=== PATIENT | male | born 1985 | race Caucasian/White ===

== ENCOUNTER 2016-09-05 20:01 | Emergency (ER) | payer MEDICAID ==
[~2016-09-05] VITALS: Ht 180.3 cm; Wt 74.8 kg
--- NOTE | 2016-09-05 20:39 | NUR ---
Dr. Lee at bedside for eval.
[2016-09-05] MEDS ORDERED: ASPIRIN 81 MG TAB.CHEW PO ONE (20:45)
[2016-09-05] MEDS ORDERED: LORAZEPAM 2 MG/1 ML VIAL IV ONE (20:45)
[2016-09-05] MEDS ORDERED: ACETAMINOPHEN ES 500 MG TABLET PO ONE (20:45)
[2016-09-05] MEDS ORDERED: IV NORMAL SALINE 1000 ML BAG IV ONE (20:45)
[2016-09-05 21:04] LABS: BASOPHILS # (AUTO) 0.1 K/uL (0.0-8.0); BASOPHILS % (AUTO) 0.6 % (0.0-2.0); EOSINOPHILS # (AUTO) 0.1 K/uL (0.0-0.7); EOSINOPHILS % (AUTO) 0.5 % (0.0-7.0); HEMATOCRIT 45.3 % (40-50); HEMOGLOBIN 15.6 G/DL (14.0-18.0); LYMPHOCYTES # (AUTO) 2.1 K/UL (0.8-4.8); LYMPHOCYTES % (AUTO) 13.3 % (20.5-51.5); MEAN CORPUSCULAR HEMOGLOBIN 31.8 UUG (27.0-31.0); MEAN CORPUSCULAR HGB CONC 34 g/dL (32.0-37.0); MEAN CORPUSCULAR VOLUME 92.7 FL (82.0-92.0); MONOCYTES # (AUTO) 1.7 K/UL (0.1-1.30); MONOCYTES % (AUTO) 10.6 % (0.0-11.0); NEUTROPHILS # (AUTO) 12.1 K/UL (1.8-8.9); PLATELET COUNT (AUTO) 303 K/UL (150-450); RED BLOOD CELL COUNT(AUTO) 4.89 MIL/UL (4.7-6.1); WHITE BLOOD COUNT (AUTO) 16.1 K/UL (4.0-11.2)
[2016-09-05 21:11] LABS: CREATININE 0.8 mg/dL (0.6-1.3)
[2016-09-05] MEDS ORDERED: ACETAMINOPHEN ES 500 MG TABLET ONE (21:15)
[2016-09-05] MEDS ORDERED: LORAZEPAM 2 MG/1 ML VIAL ONE (21:15)
[2016-09-05] MEDS ORDERED: ASPIRIN 81 MG TAB.CHEW ONE (21:15)
[2016-09-05 21:19] LABS: BAND % (MANUAL) 9 % (0-10); LYMPHOCYTES % (MANUAL) 11 % (20-40); MONOCYTES % (MANUAL) 9 % (2-10); NEUTROPHILS % (MANUAL) 71 % (42-75)
[2016-09-05 21:23] LABS: BILIRUBIN,DIRECT 0.2 mg/dL (0.0-0.2); BILIRUBIN,TOTAL 0.8 mg/dL (0.2-1.0); TOTAL PROTEIN, SERUM 8.3 g/dL (6.4-8.2)
[2016-09-05 22:35] LABS: *AMPHETAMINE, URINE NEGATIVE (NEGATIVE); *BARBITURATE, URINE NEGATIVE (NEGATIVE); *CANNABINOID, URINE NEGATIVE (NEGATIVE); *COCCAINE, URINE NEGATIVE (NEGATIVE); *OPIATE, URINE NEGATIVE (NEGATIVE); *PHENCYCLIDINE SCREEN,URINE NEGATIVE (NEGATIVE)
--- NOTE | 2016-09-06 00:18 | NUR ---
Patient discharged to home in stable conditon. Written and verbal after care instructions given. Patient verbalizes understanding of instructions.
[2016-09-06 00:19] VITALS: BP 124/78
== END 2016-09-06 00:20 | disposition home or self-care (01) ==
LOC: ER 20:12
DX: R07.89 Other chest pain (principal); F41.9 Anxiety disorder, unspecified; R00.0 Tachycardia, unspecified; F14.10 Cocaine abuse, uncomplicated; J02.9 Acute pharyngitis, unspecified; F10.20 Alcohol dependence, uncomplicated; Z88.0 Allergy status to penicillin
CPT/HCPCS: 36415; 71010; 80048; 80076; 80307; 83880; 84484 ×2; 85025; 85379; 93005; 96361; 96374; 99285; A4663; J2060; J7030; 70030-TC

== ENCOUNTER 2016-12-02 22:48 | Emergency (ER) | payer MEDICAID ==
[~2016-12-02] VITALS: Ht 180.3 cm; Wt 72.6 kg
--- NOTE | 2016-12-02 23:22 | NUR ---
Dr. Flanagan at bedside for MSE
--- NOTE | 2016-12-02 23:38 | NUR ---
PATIENT REFUSED TO HAVE XANAX AT THIS TIME. STATING "I FEEL OK RIGHT NOW."
[2016-12-02 23:43] VITALS: BP 148/95
--- NOTE | 2016-12-02 23:43 | NUR ---
Patient discharged to home in stable conditon. Written and verbal after care instructions given. Patient verbalizes understanding of instructions.PATIENT STATES WOULD RATHER FILL RX FOR XANAX THEN RECIEVED AT ER
== END 2016-12-02 23:44 | disposition home or self-care (01) ==
LOC: ER 22:52
DX: S05.01XA Injury of conjunctiva and corneal abrasion without foreign body, right eye, initial encounter (principal); Z88.0 Allergy status to penicillin; X58.XXXA Exposure to other specified factors, initial encounter; Y93.89 Activity, other specified; Y92.9 Unspecified place or not applicable; Y99.9 Unspecified external cause status
CPT/HCPCS: A4663

== ENCOUNTER 2016-12-11 19:31 | Emergency (ER) | payer MEDICAID ==
[~2016-12-11] VITALS: Ht 180.3 cm; Wt 68.0 kg
[2016-12-11] MEDS ORDERED: ALPRAZOLAM 0.25 MG TABLET PO ONE (20:00)
--- NOTE | 2016-12-11 20:02 | NUR ---
Patient discharged to home in stable conditon. Written and verbal after care instructions given. Patient verbalizes understanding of instructions.
[2016-12-11] MEDS ORDERED: ALPRAZOLAM 0.5 MG TABLET ONE (20:14)
== END 2016-12-11 20:03 | disposition home or self-care (01) ==
LOC: ER 19:32
DX: F41.9 Anxiety disorder, unspecified (principal); Z88.0 Allergy status to penicillin
CPT/HCPCS: A4663

== ENCOUNTER 2016-12-25 20:45 | Emergency (ER) | payer MEDICAID ==
[~2016-12-25] VITALS: Ht 180.3 cm; Wt 68.0 kg
[2016-12-25] MEDS ORDERED: ALPRAZOLAM 0.25 MG TABLET PO ONE (22:50)
--- NOTE | 2016-12-25 22:56 | NUR ---
Patient discharged to home in stable conditon. Written and verbal after care instructions given. Patient verbalizes understanding of instructions.
[2016-12-25] MEDS ORDERED: ALPRAZOLAM 0.25 MG TABLET ONE (23:10)
== END 2016-12-25 22:59 | disposition home or self-care (01) ==
LOC: ER 20:46
DX: F41.9 Anxiety disorder, unspecified (principal); G47.00 Insomnia, unspecified; Z88.0 Allergy status to penicillin
CPT/HCPCS: 93005; A4663

== ENCOUNTER 2017-01-13 21:26 | Emergency (ER) | payer MEDICAID ==
[~2017-01-13] VITALS: Ht 180.3 cm; Wt 68.0 kg
[2017-01-13 22:10] LABS: *BILIRUBIN,URIN NEGATIVE (NEGATIVE); *BLOOD, URINE Trace-lysed (NEGATIVE); *CLARITY,URINE CLEAR (CLEAR); *COLOR,URINE YELLOW (YELLOW); *KETONES,URINE NEGATIVE (NEGATIVE); *PROTEIN,URINE NEGATIVE (NEGATIVE); *UROBILINOGEN,URINE 0.2 E.U./dl (NORMAL); LEUKOCYTE ESTERASE ,URINE NEGATIVE (NEGATIVE); NITRITE, URINE NEGATIVE (NEGATIVE); UGLUCOSE NEGATIVE (NEGATIVE)
[2017-01-13 22:29] LABS: BACTERIA,URINE NONE SEEN /HPF (NONE SEEN); RBC,URINE 0-3 /HPF (0-3); SQUAMOUS EPITHELIAL CELL,UR FEW /HPF (NONE SEEN); WBC,URINE NONE SEEN /HPF (0-3)
--- NOTE | 2017-01-13 22:44 | NUR ---
Patient discharged to home in stable conditon. Written and verbal after care instructions given. Patient verbalizes understanding of instructions.
== END 2017-01-13 22:45 | disposition home or self-care (01) ==
LOC: ER 21:30
DX: F41.9 Anxiety disorder, unspecified (principal); Z88.0 Allergy status to penicillin
CPT/HCPCS: 81001; 99284; A4663

== ENCOUNTER 2017-01-31 04:10 | Emergency (ER) | payer MEDICAID ==
[~2017-01-31] VITALS: Ht 180.3 cm; Wt 66.7 kg
[2017-01-31 05:32] LABS: BASOPHILS # (AUTO) 0.1 K/uL (0.0-8.0); BASOPHILS % (AUTO) 0.9 % (0.0-2.0); EOSINOPHILS # (AUTO) 0.2 K/uL (0.0-0.7); EOSINOPHILS % (AUTO) 2.2 % (0.0-7.0); HEMATOCRIT 46.9 % (40-50); HEMOGLOBIN 16.3 G/DL (14.0-18.0); LYMPHOCYTES # (AUTO) 3.2 K/UL (0.8-4.8); MEAN CORPUSCULAR HEMOGLOBIN 31.8 UUG (27.0-31.0); MEAN CORPUSCULAR HGB CONC 35 g/dL (32.0-37.0); MEAN CORPUSCULAR VOLUME 91.4 FL (82.0-92.0); MONOCYTES % (AUTO) 9.8 % (0.0-11.0); NEUTROPHILS # (AUTO) 5.6 K/UL (1.8-8.9); NEUTROPHILS % (AUTO) 55.1 % (38.5-71.5); PLATELET COUNT (AUTO) 306 K/UL (150-450); RED BLOOD CELL COUNT(AUTO) 5.13 MIL/UL (4.7-6.1); WHITE BLOOD COUNT (AUTO) 10.1 K/UL (4.0-11.2)
[2017-01-31 06:07] LABS: THYROID STIMULATING HORMONE 1.529 mIU/mL (0.358-3.740)
[2017-01-31 06:12] LABS: BILIRUBIN,DIRECT 0.1 mg/dL (0.0-0.2); BILIRUBIN,TOTAL 0.6 mg/dL (0.2-1.0); CREATININE 0.8 mg/dL (0.6-1.3); POTASSIUM 3.9 mmol/L (3.5-5.1); TOTAL PROTEIN, SERUM 7.6 g/dL (6.4-8.2)
--- NOTE | 2017-01-31 06:20 | NUR ---
Patient discharged to home in stable conditon. Written and verbal after care instructions given. Patient verbalizes understanding of instructions.
== END 2017-01-31 06:21 | disposition home or self-care (01) ==
LOC: ER 04:13
DX: F41.1 Generalized anxiety disorder (principal); G47.00 Insomnia, unspecified; Z88.0 Allergy status to penicillin
CPT/HCPCS: 36415; 70030-TC; 83690; 84443; 84479; 85025; 85651; 85730; 93005; A4663

== ENCOUNTER 2017-02-19 18:52 | Emergency (ER) | payer MEDICAID ==
[~2017-02-19] VITALS: Ht 180.3 cm; Wt 70.3 kg
--- NOTE | 2017-02-19 20:22 | NUR ---
Patient discharged to home in stable conditon. Written and verbal after care instructions given. Patient verbalizes understanding of instructions.
== END 2017-02-19 20:23 | disposition home or self-care (01) ==
LOC: ER 18:53
DX: S61.011A Laceration without foreign body of right thumb without damage to nail, initial encounter (principal); Z88.0 Allergy status to penicillin; X58.XXXA Exposure to other specified factors, initial encounter; Y93.89 Activity, other specified; Y92.89 Other specified places as the place of occurrence of the external cause; Y99.8 Other external cause status
CPT/HCPCS: A4663

== ENCOUNTER 2017-03-28 23:09 | Emergency (ER) | payer MEDICAID ==
[~2017-03-28] VITALS: Ht 180.3 cm; Wt 72.6 kg
--- NOTE | 2017-03-29 00:45 | NUR ---
Pt c/o SOB, CP and congestion x 3 weeks, w/cough, SANTIAGO and sore throat. Pt denies dizziness, n/v, no other complaints, no distress noted.
--- NOTE | 2017-03-29 01:40 | NUR ---
Gave pt RX and d/c instructions, verbalized understanding.
== END 2017-03-29 01:45 | disposition home or self-care (01) ==
LOC: ER 23:12
DX: J20.8 Acute bronchitis due to other specified organisms (principal); B96.89 Other specified bacterial agents as the cause of diseases classified elsewhere; Z88.0 Allergy status to penicillin; F17.200 Nicotine dependence, unspecified, uncomplicated
CPT/HCPCS: 93005; 99283; A4663

== ENCOUNTER 2017-06-16 22:39 | Emergency (ER) | payer MEDICAID ==
[~2017-06-16] VITALS: Ht 180.3 cm; Wt 73.5 kg
[2017-06-16] MEDS ORDERED: LORAZEPAM 0.5 MG TABLET PO ONE (23:30)
[2017-06-16] MEDS ORDERED: LORAZEPAM 1 MG TABLET ONE (23:36)
--- NOTE | 2017-06-16 23:40 | NUR ---
Patient discharged to home in stable conditon. Written and verbal after care instructions given. Patient verbalizes understanding of instructions. Patient able to ambulate unassisted with steady gait. Patient left with all personal belongings.
[2017-06-16 23:43] VITALS: BP 147/82
== END 2017-06-16 23:40 | disposition home or self-care (01) ==
LOC: ER 22:40
DX: F41.9 Anxiety disorder, unspecified (principal); F17.210 Nicotine dependence, cigarettes, uncomplicated; F32.9 Major depressive disorder, single episode, unspecified; F11.10 Opioid abuse, uncomplicated; Z88.0 Allergy status to penicillin
CPT/HCPCS: A4663

== ENCOUNTER 2017-06-28 19:11 | Emergency (ER) | payer MEDICAID ==
[~2017-06-28] VITALS: Ht 180.3 cm; Wt 74.8 kg
[2017-06-28] MEDS ORDERED: LORAZEPAM 1 MG TABLET (19:39)
[2017-06-28] MEDS ORDERED: SERTRALINE HCL 100 MG TABLET (19:39)
[2017-06-28] MEDS ORDERED: ONDANSETRON IV *ER 4 MG/2 ML VIAL IV ONE (20:27)
[2017-06-28] MEDS ORDERED: IV NS 1000 ML 1,000 ML IV ONE (20:30)
[2017-06-28] MEDS ORDERED: HYDROCODONE/APAP 5-325MG TABLET PO ONE (20:30)
--- NOTE | 2017-06-28 20:30 | NUR ---
PATIENT SEEN AAOX4,MAEX4,NO SOB ON ROOM AIR . VERBALIZED GENERALIZED BODY PAIN 5 TO 5 OVER 10 . TOUCHING HIS FOREHEAD AND NECK PAIN. NO SKINBREAKDOWN NOTED . STARTED NO 20 H/L TO LEFT FOREARM .LABS CAME AND DID BLOOD DRAWS .
[2017-06-28] MEDS ORDERED: HYDROCODONE/APAP 5-325MG TABLET ONE (20:38)
[2017-06-28] MEDS ORDERED: ONDANSETRON 4 MG/2 ML VIAL ONE (20:38)
[2017-06-28 20:46] LABS: BASOPHILS # (AUTO) 0.1 K/uL (0.0-8.0); BASOPHILS % (AUTO) 0.9 % (0.0-2.0); EOSINOPHILS # (AUTO) 0.2 K/uL (0.0-0.7); EOSINOPHILS % (AUTO) 1.8 % (0.0-7.0); HEMATOCRIT 46.8 % (36.7-47.1); HEMOGLOBIN 15.9 g/dL (12.5-16.3); LYMPHOCYTES # (AUTO) 2.9 K/uL (20.0-40.0); LYMPHOCYTES % (AUTO) 30.1 % (20.5-51.5); MEAN CORPUSCULAR HEMOGLOBIN 31.4 uug (23.8-33.4); MEAN CORPUSCULAR HGB CONC 34 g/dL (32.5-36.3); MONOCYTES # (AUTO) 0.9 K/uL (2.0-10.0); MONOCYTES % (AUTO) 9.6 % (0.0-11.0); NEUTROPHILS # (AUTO) 5.6 K/uL (1.8-8.9); NEUTROPHILS % (AUTO) 57.6 % (38.5-71.5); PLATELET COUNT (AUTO) 323 K/uL (152-348); RED BLOOD CELL COUNT(AUTO) 5.08 MIL/uL (4.06-5.63); WHITE BLOOD COUNT (AUTO) 9.7 K/uL (3.6-10.2)
[2017-06-28 20:53] LABS: CREATININE 1.2 mg/dL (0.6-1.3); POTASSIUM 4.5 mmol/L (3.5-5.1)
[2017-06-28 21:00] LABS: BILIRUBIN,TOTAL 0.5 mg/dL (0.2-1.0); TOTAL PROTEIN, SERUM 7.9 g/dL (6.4-8.2)
--- NOTE | 2017-06-28 21:01 | NUR ---
WENT FOR CT VIA W/C .
[2017-06-28] MEDS ORDERED: KETOROLAC TROMETHAMINE 30 MG INJ IVP ONE (22:16)
[2017-06-28] MEDS ORDERED: KETOROLAC TROMETHAMINE 30 MG INJ ONE (22:32)
--- NOTE | 2017-06-28 22:48 | NUR ---
d/c instruction given and patient verbalized understanding .deneis pain at this time .no sob .ambulatory steady of gait .
[2017-06-28 23:04] VITALS: BP 115/86
== END 2017-06-28 23:04 | disposition home or self-care (01) ==
LOC: ER 19:13
DX: S39.012A Strain of muscle, fascia and tendon of lower back, initial encounter (principal); S09.90XA Unspecified injury of head, initial encounter; F17.210 Nicotine dependence, cigarettes, uncomplicated; F12.10 Cannabis abuse, uncomplicated; Z88.0 Allergy status to penicillin; Z79.899 Other long term (current) drug therapy; V43.52XA Car driver injured in collision with other type car in traffic accident, initial encounter; Y93.89 Activity, other specified; Y92.410 Unspecified street and highway as the place of occurrence of the external cause; Y99.8 Other external cause status
CPT/HCPCS: 36415; 70030-TC; 70450; 71045; 72100; 85025; A4663; J1885; J2405; J7030

== ENCOUNTER 2017-08-29 16:00 | Emergency (ER) | payer MEDICAID ==
[~2017-08-29] VITALS: Ht 180.3 cm; Wt 74.8 kg
[~2017-08-29 16:00] MED LIST: LORAZEPAM 1 MG TABLET; SERTRALINE HCL 100 MG TABLET
--- NOTE | 2017-08-29 16:27 | NUR ---
MSE COMPKLETED, PT D/C'D HOME, ACI/RX X1 GIVEN. PT AMBULATED W/O DIFF/TOOK ALL BELONGINGS.
[2017-08-29 16:29] VITALS: BP 155/88
== END 2017-08-29 16:29 | disposition home or self-care (01) ==
LOC: ER 16:01
DX: F41.9 Anxiety disorder, unspecified (principal); F11.10 Opioid abuse, uncomplicated; F17.200 Nicotine dependence, unspecified, uncomplicated; Z79.899 Other long term (current) drug therapy; Z88.0 Allergy status to penicillin
CPT/HCPCS: 99284; A4663

== ENCOUNTER 2017-11-18 04:29 | Emergency (ER) | payer MEDICAID ==
[~2017-11-18] VITALS: Ht 180.3 cm; Wt 74.8 kg
--- NOTE | 2017-11-18 04:30 | NUR ---
Came in to ER c/o chest pain and anxiety. To room 1A. Attached to bedside monitor. Seen and evaluated by Dr. Herman.
--- NOTE | 2017-11-18 04:50 | NUR ---
Ativan 1mg administered as ordered. Seen by Dr. Herman
[2017-11-18] MEDS ORDERED: LORAZEPAM 0.5 MG TABLET PO ONE (05:00)
[2017-11-18] MEDS ORDERED: LORAZEPAM 1 MG TABLET ONE (05:02)
--- NOTE | 2017-11-18 05:16 | NUR ---
Patient discharged to home in stable conditon. Written and verbal after care instructions given. Patient verbalizes understanding of instructions. Prescription provided.
[2017-11-18 05:19] VITALS: BP 141/91
== END 2017-11-18 05:18 | disposition home or self-care (01) ==
LOC: ER 04:32
DX: R07.9 Chest pain, unspecified (principal); R06.00 Dyspnea, unspecified; F41.9 Anxiety disorder, unspecified; F17.200 Nicotine dependence, unspecified, uncomplicated; F14.10 Cocaine abuse, uncomplicated; Z88.0 Allergy status to penicillin
CPT/HCPCS: 71045; 93005; A4663

== ENCOUNTER 2017-12-20 13:51 | Emergency (ER) | payer MEDICAID ==
[~2017-12-20] VITALS: Ht 180.3 cm; Wt 74.8 kg
[2017-12-20] MEDS ORDERED: LORAZEPAM 1 MG TABLET ONE (14:06)
--- NOTE | 2017-12-20 14:09 | NUR ---
Patient discharged to home in stable conditon. Written and verbal after care instructions given. Patient verbalizes understanding of instructions.pt not driving
[2017-12-20] MEDS ORDERED: LORAZEPAM 0.5 MG TABLET PO ONE (14:15)
== END 2017-12-20 14:11 | disposition home or self-care (01) ==
LOC: ER 13:52
DX: F41.9 Anxiety disorder, unspecified (principal); F14.10 Cocaine abuse, uncomplicated; F17.200 Nicotine dependence, unspecified, uncomplicated; Z88.0 Allergy status to penicillin
CPT/HCPCS: A4663

== ENCOUNTER 2018-02-09 15:48 | Emergency (ER) | payer MEDICAID ==
[~2018-02-09] VITALS: Ht 180.3 cm; Wt 77.1 kg
[2018-02-09] MEDS ORDERED: LORAZEPAM 0.5 MG TABLET PO ONE (16:45)
[2018-02-09] MEDS ORDERED: LORAZEPAM 1 MG TABLET ONE (16:49)
--- NOTE | 2018-02-09 16:51 | NUR ---
Patient discharged to home in stable conditon. Written and verbal after care instructions given. Patient verbalizes understanding of instructions.
== END 2018-02-09 16:52 | disposition home or self-care (01) ==
LOC: ER 15:50
DX: F41.9 Anxiety disorder, unspecified (principal); Z76.0 Encounter for issue of repeat prescription; F17.200 Nicotine dependence, unspecified, uncomplicated; F14.10 Cocaine abuse, uncomplicated; Z88.0 Allergy status to penicillin; Z79.899 Other long term (current) drug therapy
CPT/HCPCS: A4663

== ENCOUNTER 2018-04-10 00:49 | Emergency (ER) | payer MEDICAID ==
[~2018-04-10] VITALS: Ht 180.3 cm; Wt 75.7 kg
--- NOTE | 2018-04-10 01:16 | NUR ---
ARMANDO SANDS at bedside for patient pear picker. Addendum: 04/10/18 at 0117 by FRANCIS ARMANDO SANDS at bedside for patient evaluation.
[2018-04-10 01:58] LABS: BASOPHILS # (AUTO) 0.1 K/uL (0.0-8.0); BASOPHILS % (AUTO) 1.1 % (0.0-2.0); EOSINOPHILS # (AUTO) 0.2 K/uL (0.0-0.7); EOSINOPHILS % (AUTO) 1.8 % (0.0-7.0); HEMOGLOBIN 15.1 g/dL (12.5-16.3); LYMPHOCYTES # (AUTO) 3.7 K/uL (20.0-40.0); LYMPHOCYTES % (AUTO) 32.8 % (20.5-51.5); MEAN CORPUSCULAR HEMOGLOBIN 31.1 uug (23.8-33.4); MEAN CORPUSCULAR HGB CONC 34 g/dL (32.5-36.3); MEAN CORPUSCULAR VOLUME 90.5 fL (73.0-96.2); MONOCYTES # (AUTO) 1.1 K/uL (2.0-10.0); MONOCYTES % (AUTO) 9.6 % (0.0-11.0); NEUTROPHILS # (AUTO) 6.2 K/uL (1.8-8.9); NEUTROPHILS % (AUTO) 54.7 % (38.5-71.5); PLATELET COUNT (AUTO) 261 K/uL (152-348); RED BLOOD CELL COUNT(AUTO) 4.86 MIL/uL (4.06-5.63); WHITE BLOOD COUNT (AUTO) 11.4 K/uL (3.6-10.2)
[2018-04-10 02:09] LABS: CREATININE 0.9 mg/dL (0.6-1.3); POTASSIUM 3.9 mmol/L (3.5-5.1)
[2018-04-10 02:15] LABS: BILIRUBIN,DIRECT 0.1 mg/dL (0.0-0.2); BILIRUBIN,TOTAL 0.4 mg/dL (0.2-1.0); TOTAL PROTEIN, SERUM 7.5 g/dL (6.4-8.2)
--- NOTE | 2018-04-10 02:35 | NUR ---
Patient discharged to home in stable conditon. Written and verbal after care instructions given. Patient verbalizes understanding of instructions. Ambulated from ER with stable gait. All belongings with patient. VSS
[2018-04-10 02:36] VITALS: BP 131/80
== END 2018-04-10 02:36 | disposition other institution (70) ==
LOC: ER 00:52
DX: F41.9 Anxiety disorder, unspecified (principal); F17.200 Nicotine dependence, unspecified, uncomplicated; F14.10 Cocaine abuse, uncomplicated; F32.9 Major depressive disorder, single episode, unspecified; Z79.899 Other long term (current) drug therapy; Z88.0 Allergy status to penicillin
CPT/HCPCS: 36415; 70030-TC; 85025; 85730; 86403; 87070; 93005; A4663

== ENCOUNTER 2018-05-05 13:29 | Emergency (ER) | payer MEDICAID ==
[~2018-05-05] VITALS: Ht 180.3 cm; Wt 72.6 kg
[2018-05-05] MEDS ORDERED: MIRT15TA PO (13:38)
--- NOTE | 2018-05-05 14:10 | NUR ---
Patient discharged to home in stable conditon. Written and verbal after care instructions given. Patient verbalizes understanding of instructions.NO SIGN OF DISTRESS.
== END 2018-05-05 14:11 | disposition home or self-care (01) ==
LOC: ER 13:29
DX: J02.8 Acute pharyngitis due to other specified organisms (principal); B97.89 Other viral agents as the cause of diseases classified elsewhere; F41.9 Anxiety disorder, unspecified; F17.200 Nicotine dependence, unspecified, uncomplicated; F14.10 Cocaine abuse, uncomplicated; Z88.0 Allergy status to penicillin; Z79.899 Other long term (current) drug therapy
CPT/HCPCS: A4663

== ENCOUNTER 2018-05-28 22:50 | Emergency (ER) | payer MEDICAID ==
[~2018-05-28] VITALS: Ht 180.3 cm; Wt 74.8 kg
[~2018-05-28 22:50] MED LIST changes: +MIRT15TA PO
--- NOTE | 2018-05-28 23:28 | NUR ---
Dr. Molina at bedside for MSE.
[2018-05-28] MEDS ORDERED: DEXAMETHASONE 4 MG TABLET PO ONE (23:45)
[2018-05-28] MEDS ORDERED: DEXAMETHASONE 4 MG TABLET ONE (23:48)
--- NOTE | 2018-05-28 23:49 | NUR ---
Patient discharged to home in stable conditon. Written and verbal after care instructions given. Patient verbalizes understanding of instructions. Pt ambulated out of ER with steady gait, no acute signs of distress, VSS, all belongings taken.
[2018-05-28 23:51] VITALS: BP 147/49
== END 2018-05-28 23:56 | disposition home or self-care (01) ==
LOC: ER 22:50
DX: J02.8 Acute pharyngitis due to other specified organisms (principal); B97.89 Other viral agents as the cause of diseases classified elsewhere; F17.200 Nicotine dependence, unspecified, uncomplicated; F14.10 Cocaine abuse, uncomplicated; Z79.899 Other long term (current) drug therapy; Z88.0 Allergy status to penicillin
CPT/HCPCS: 36415; 86403; 87070; 99283; J8540; A4663

== ENCOUNTER 2018-12-05 18:57 | Emergency (ER) | payer MEDICAID ==
[~2018-12-05] VITALS: Ht 180.3 cm; Wt 74.8 kg
[2018-12-05] MEDS ORDERED: IV NORMAL SALINE 1000 ML BAG IV ONE ×2 (19:45→22:15)
[2018-12-05 19:59] LABS: BASOPHILS # (AUTO) 0.1 K/uL (0.0-8.0); BASOPHILS % (AUTO) 0.6 % (0.0-2.0); EOSINOPHILS # (AUTO) 0.1 K/uL (0.0-0.7); EOSINOPHILS % (AUTO) 0.9 % (0.0-7.0); HEMATOCRIT 50.9 % (36.7-47.1); HEMOGLOBIN 17.4 g/dL (12.5-16.3); LYMPHOCYTES # (AUTO) 2.3 K/uL (20.0-40.0); LYMPHOCYTES % (AUTO) 20.6 % (20.5-51.5); MEAN CORPUSCULAR HEMOGLOBIN 31.2 uug (23.8-33.4); MEAN CORPUSCULAR HGB CONC 34 g/dL (32.5-36.3); MEAN CORPUSCULAR VOLUME 91.4 fL (73.0-96.2); MONOCYTES % (AUTO) 9.2 % (0.0-11.0); NEUTROPHILS # (AUTO) 7.7 K/uL (1.8-8.9); NEUTROPHILS % (AUTO) 68.7 % (38.5-71.5); PLATELET COUNT (AUTO) 367 K/uL (152-348); RED BLOOD CELL COUNT(AUTO) 5.57 MIL/uL (4.06-5.63); WHITE BLOOD COUNT (AUTO) 11.2 K/uL (3.6-10.2)
[2018-12-05 20:10] LABS: POTASSIUM 3.8 mmol/L (3.5-5.1)
[2018-12-05 20:19] LABS: BILIRUBIN,DIRECT 0.1 mg/dL (0.0-0.2); BILIRUBIN,TOTAL 0.6 mg/dL (0.2-1.0); TOTAL PROTEIN, SERUM 8.8 g/dL (6.4-8.2)
[2018-12-05] MEDS ORDERED: LORAZEPAM 0.5 MG TABLET PO ONE (22:15)
[2018-12-05] MEDS ORDERED: LORAZEPAM 1 MG TABLET ONE (22:16)
[2018-12-05] MEDS ORDERED: HYDROCODONE/APAP 5-325MG TABLET PO ONE (22:30)
--- NOTE | 2018-12-05 22:50 | NUR ---
Patient discharged to home in stable conditon. Written and verbal after care instructions given. Patient verbalizes understanding of instructions. Instructed patient that he is not allowed to drive. Patient ambulated with stable gait. States that Milly will take him home.
[2018-12-05 22:52] VITALS: BP 138/83
== END 2018-12-05 22:53 | disposition home or self-care (01) ==
LOC: ER 19:05
DX: F41.9 Anxiety disorder, unspecified (principal); E86.0 Dehydration; F32.9 Major depressive disorder, single episode, unspecified; F17.200 Nicotine dependence, unspecified, uncomplicated; F14.10 Cocaine abuse, uncomplicated; Z88.0 Allergy status to penicillin; Z79.899 Other long term (current) drug therapy
CPT/HCPCS: 36415; 70030-TC; 71045; 84443; 85025; 93005; A4663; J7030

== ENCOUNTER 2019-01-22 13:48 | Emergency (ER) | payer MEDICAID ==
[~2019-01-22] VITALS: Ht 180.3 cm; Wt 72.6 kg
[2019-01-22] MEDS ORDERED: LORAZEPAM 0.5 MG TABLET PO ONE (14:00)
[2019-01-22] MEDS ORDERED: LORAZEPAM 1 MG TABLET ONE (14:04)
--- NOTE | 2019-01-22 14:06 | NUR ---
Patient discharged to home in stable conditon. Written and verbal after care instructions given. Patient verbalizes understanding of instructions.
[2019-01-22 14:07] VITALS: BP 122/79
== END 2019-01-22 14:08 | disposition home or self-care (01) ==
LOC: ER 13:48
DX: F41.9 Anxiety disorder, unspecified (principal); F32.9 Major depressive disorder, single episode, unspecified; F17.200 Nicotine dependence, unspecified, uncomplicated; F11.10 Opioid abuse, uncomplicated; Z76.0 Encounter for issue of repeat prescription; Z88.0 Allergy status to penicillin; Z79.899 Other long term (current) drug therapy
CPT/HCPCS: A4663

== ENCOUNTER 2019-01-26 16:54 | Emergency (ER) | payer MEDICAID ==
[~2019-01-26] VITALS: Ht 175.3 cm; Wt 72.6 kg
[2019-01-26] MEDS ORDERED: KETOROLAC TROMETHAMINE 30 MG INJ ONE (17:52)
[2019-01-26] MEDS ORDERED: KETOROLAC TROMETHAMINE 30 MG INJ IM ONE (18:00)
--- NOTE | 2019-01-26 18:02 | NUR ---
PATIENT WAS SEEN BY MD. THROAT SWAB DONE. MED GIVEN ORDERED. DC, RX AND FOLLOW UP INSTRUCTIONS GIVEN AND EXPLAINED TO PATIENT WHO STATES HE UNDERSTAND ALL INSTRUCTIONS.
== END 2019-01-26 18:05 | disposition home or self-care (01) ==
LOC: ER 16:55
DX: B34.9 Viral infection, unspecified (principal); H92.03 Otalgia, bilateral; F32.9 Major depressive disorder, single episode, unspecified; F41.9 Anxiety disorder, unspecified; F17.200 Nicotine dependence, unspecified, uncomplicated; F14.10 Cocaine abuse, uncomplicated; Z88.0 Allergy status to penicillin; Z79.899 Other long term (current) drug therapy
CPT/HCPCS: 87070; 96372; 99283; J1885; A4663

== ENCOUNTER 2019-02-08 16:22 | Emergency (ER) | payer MEDICAID ==
[~2019-02-08] VITALS: Ht 180.3 cm; Wt 74.8 kg
[2019-02-08] MEDS ORDERED: ALPR1TAB7 PO (16:39)
[2019-02-08] MEDS ORDERED: IV NORMAL SALINE 1000 ML BAG IV ONE (16:45)
[2019-02-08] MEDS ORDERED: LORAZEPAM 0.5 MG TABLET PO ONE (16:45)
[2019-02-08 16:57] LABS: BASOPHILS # (AUTO) 0.1 K/uL (0.0-8.0); BASOPHILS % (AUTO) 0.6 % (0.0-2.0); EOSINOPHILS # (AUTO) 0.1 K/uL (0.0-0.7); EOSINOPHILS % (AUTO) 0.5 % (0.0-7.0); HEMATOCRIT 43.3 % (36.7-47.1); HEMOGLOBIN 14.7 g/dL (12.5-16.3); LYMPHOCYTES # (AUTO) 2.5 K/uL (20.0-40.0); LYMPHOCYTES % (AUTO) 20.5 % (20.5-51.5); MEAN CORPUSCULAR HEMOGLOBIN 31.1 uug (23.8-33.4); MEAN CORPUSCULAR HGB CONC 34 g/dL (32.5-36.3); MEAN CORPUSCULAR VOLUME 91.5 fL (73.0-96.2); MONOCYTES # (AUTO) 0.8 K/uL (2.0-10.0); MONOCYTES % (AUTO) 6.8 % (0.0-11.0); NEUTROPHILS # (AUTO) 8.6 K/uL (1.8-8.9); NEUTROPHILS % (AUTO) 71.6 % (38.5-71.5); PLATELET COUNT (AUTO) 406 K/uL (152-348); RED BLOOD CELL COUNT(AUTO) 4.74 MIL/uL (4.06-5.63)
--- NOTE | 2019-02-08 16:58 | NUR ---
Patient reports chest pain for 2-3 days Reports using cocaine and alcohol last night. States he is also feeling shortness of breath and has h/o MARIA ISABEL. patient reports tingling of scalp
[2019-02-08 17:06] LABS: ALANINE AMINOTRANSFERASE 29 U/L (16-63); ALKALINE PHOSPHATASE 115 U/L (50-136); ASPARTATE AMINOTRANSFERASE 20 U/L (15-37); BILIRUBIN,DIRECT 0.1 mg/dL (0.0-0.2); BILIRUBIN,TOTAL 0.4 mg/dL (0.2-1.0); CARBON DIOXIDE 23 mmol/L (21-32); CHLORIDE 99 mmol/L (98-107); CREATININE 0.7 mg/dL (0.6-1.3); GLUCOSE 86 mg/dL (74-106); POTASSIUM 4.1 mmol/L (3.5-5.1); TOTAL PROTEIN, SERUM 8.1 g/dL (6.4-8.2); UREA NITROGEN, BLOOD 12 mg/dL (7-18)
[2019-02-08 17:26] LABS: THYROID STIMULATING HORMONE 1.436 mIU/mL (0.358-3.740)
== END 2019-02-08 18:08 | disposition home or self-care (01) ==
LOC: ER 16:22
DX: F14.180 Cocaine abuse with cocaine-induced anxiety disorder (principal); F32.9 Major depressive disorder, single episode, unspecified; F17.200 Nicotine dependence, unspecified, uncomplicated; Z88.0 Allergy status to penicillin; Z79.899 Other long term (current) drug therapy
CPT/HCPCS: 36415; 70030-TC; 71045; 84443; 85025; 93005; A4663; J7030

== ENCOUNTER 2019-02-26 10:05 | Emergency (ER) | payer MEDICAID, OTHER ==
[~2019-02-26] VITALS: Ht 180.3 cm; Wt 74.8 kg
[~2019-02-26 10:05] MED LIST changes: +ALPR1TAB7 PO; -LORAZEPAM 1 MG TABLET; -MIRT15TA PO
--- NOTE | 2019-02-26 10:18 | NUR ---
Dr Flanagan at the bedside for MSE.
[2019-02-26 11:10] VITALS: BP 116/78
--- NOTE | 2019-02-26 11:10 | NUR ---
Patient discharged to home in stable conditon. Written and verbal after care instructions given. Patient verbalizes understanding of instructions.
== END 2019-02-26 11:11 | disposition home or self-care (01) ==
LOC: ER 10:07
DX: S00.03XA Contusion of scalp, initial encounter (principal); F32.9 Major depressive disorder, single episode, unspecified; F41.9 Anxiety disorder, unspecified; F17.200 Nicotine dependence, unspecified, uncomplicated; Z88.0 Allergy status to penicillin; Z79.899 Other long term (current) drug therapy; V43.52XA Car driver injured in collision with other type car in traffic accident, initial encounter; Y93.89 Activity, other specified; Y92.410 Unspecified street and highway as the place of occurrence of the external cause; Y99.8 Other external cause status
CPT/HCPCS: 70450; A4663

== ENCOUNTER 2019-03-29 18:19 | Emergency (ER) | payer MEDICAID ==
[~2019-03-29] VITALS: Ht 152.4 cm; Wt 74.8 kg
[2019-03-29] MEDS ORDERED: ACETAMINOPHEN ES 500 MG TABLET ONE ×2 (19:03→19:05)
--- NOTE | 2019-03-29 19:05 | NUR ---
ASSUMED CARE OF PATIENT FROM RAUL KAPOOR.
[2019-03-29] MEDS ORDERED: ACETAMINOPHEN ES 500 MG TABLET PO ONE (19:15)
[2019-03-29 19:37] VITALS: BP 108/76
--- NOTE | 2019-03-29 19:40 | NUR ---
Patient discharged to home in stable conditon. Written and verbal after care instructions given. Patient verbalizes understanding of instructions. Patient ambulated out of the ER with steady gait. All belongings with patient.
== END 2019-03-29 19:40 | disposition home or self-care (01) ==
LOC: ER 18:20
DX: J40 Bronchitis, not specified as acute or chronic (principal); R19.7 Diarrhea, unspecified; F32.9 Major depressive disorder, single episode, unspecified; F41.9 Anxiety disorder, unspecified; F17.200 Nicotine dependence, unspecified, uncomplicated; F14.10 Cocaine abuse, uncomplicated; Z88.0 Allergy status to penicillin; Z79.899 Other long term (current) drug therapy
CPT/HCPCS: 36415; 71045; 86403; 87070; A4663; A9150

== ENCOUNTER 2019-07-29 07:03 | Emergency (ER) | payer MEDICAID ==
[~2019-07-29] VITALS: Ht 180.3 cm; Wt 65.8 kg
--- NOTE | 2019-07-29 07:22 | NUR ---
Patient ambulated with stable gait. A/Ox4. Speech is clear, speaks in complete sentences. No acute neuro deficits. Patient came for c/o cp and states that it might be from a panic/anxiety attack. Respiratory even and unlabored, no cough or sob. Denies any n/v/d. Patient in bed at lowest position, sr upx2, call light within reach. Fall precautions implemented per protocol.
[2019-07-29 07:39] VITALS: BP 145/91
--- NOTE | 2019-07-29 07:39 | NUR ---
Patient discharged to home in stable condition. Written and verbal after care instructions given. Patient verbalizes understanding of instructions. Stressed follow up or return to ER for worsening s/s.
== END 2019-07-29 07:40 | disposition home or self-care (01) ==
LOC: ER 07:08
DX: F15.180 Other stimulant abuse with stimulant-induced anxiety disorder (principal); I45.10 Unspecified right bundle-branch block; F17.200 Nicotine dependence, unspecified, uncomplicated; R03.0 Elevated blood-pressure reading, without diagnosis of hypertension
CPT/HCPCS: 93005; A4663

== ENCOUNTER 2019-11-10 22:53 | Emergency (ER) | payer MEDICAID ==
[~2019-11-10] VITALS: Ht 180.3 cm; Wt 63.5 kg
--- NOTE | 2019-11-10 23:02 | NUR ---
DR. COBOS AT BEDSIDE FOR MSE.
[2019-11-10] MEDS ORDERED: ALPRAZOLAM 0.25 MG TABLET PO ONE (23:15)
[2019-11-10 23:16] VITALS: BP 143/96
[2019-11-10] MEDS ORDERED: ALPRAZOLAM 0.5 MG TABLET ONE (23:16)
--- NOTE | 2019-11-10 23:16 | NUR ---
Patient discharged to home in stable condition. Written and verbal after care instructions given. Patient verbalizes understanding of instructions. Stressed follow up or return to ER for worsening s/s. PATIENT STATES HE IS NOT DRIVING TONIGHT, FRIEND IS WAITING FOR HIM OUTSIDE.
== END 2019-11-10 23:17 | disposition home or self-care (01) ==
LOC: ER 22:54
DX: F41.0 Panic disorder [episodic paroxysmal anxiety] (principal); Z79.899 Other long term (current) drug therapy; F17.200 Nicotine dependence, unspecified, uncomplicated
CPT/HCPCS: 93005; A4663

== ENCOUNTER 2020-06-28 13:53 | Emergency (ER) | payer MEDICAID ==
[~2020-06-28] VITALS: Ht 180.3 cm; Wt 65.8 kg
[2020-06-28] MEDS ORDERED: LORAZEPAM 2 MG/1 ML VIAL IV ONE (14:00)
[2020-06-28] MEDS ORDERED: IV NORMAL SALINE 1000 ML BAG IV ONE (14:00)
[2020-06-28 14:23] LABS: BASOPHILS # (AUTO) 0.1 K/uL (0.0-8.0); BASOPHILS % (AUTO) 0.4 % (0.0-2.0); EOSINOPHILS # (AUTO) 0.2 K/uL (0.0-0.7); EOSINOPHILS % (AUTO) 1.3 % (0.0-7.0); HEMATOCRIT 43.3 % (36.7-47.1); HEMOGLOBIN 14.8 g/dL (12.5-16.3); LYMPHOCYTES # (AUTO) 1.7 K/uL (20.0-40.0); LYMPHOCYTES % (AUTO) 11.4 % (20.5-51.5); MEAN CORPUSCULAR HEMOGLOBIN 33.4 uug (23.8-33.4); MEAN CORPUSCULAR HGB CONC 34 g/dL (32.5-36.3); MEAN CORPUSCULAR VOLUME 97.5 fL (73.0-96.2); MONOCYTES # (AUTO) 1.4 K/uL (2.0-10.0); MONOCYTES % (AUTO) 9.6 % (0.0-11.0); NEUTROPHILS # (AUTO) 11.6 K/uL (1.8-8.9); NEUTROPHILS % (AUTO) 77.3 % (38.5-71.5); PLATELET COUNT (AUTO) 291 K/uL (152-348); RED BLOOD CELL COUNT(AUTO) 4.44 MIL/uL (4.06-5.63); WHITE BLOOD COUNT (AUTO) 15.1 K/uL (3.6-10.2)
[2020-06-28] MEDS ORDERED: LORAZEPAM 2 MG/1 ML VIAL ONE (14:24)
[2020-06-28 14:29] LABS: CREATININE 0.8 mg/dL (0.6-1.3); POTASSIUM 3.7 mmol/L (3.5-5.1)
[2020-06-28 14:34] LABS: BILIRUBIN,DIRECT 0.2 mg/dL (0.0-0.2); ETHANOL < 3 MG/DL (0-0); TOTAL PROTEIN, SERUM 7.3 g/dL (6.4-8.2)
--- NOTE | 2020-06-28 16:48 | NUR ---
Patient discharged to home in stable condition. Written and verbal after care instructions given. Patient verbalizes understanding of instructions. Stressed follow up or return to ER for worsening s/s. Patient instructed not to drive home.
[2020-06-28 16:49] VITALS: BP 148/101
== END 2020-06-28 16:30 | disposition home or self-care (01) ==
LOC: ER 13:53
DX: F19.10 Other psychoactive substance abuse, uncomplicated (principal); F15.10 Other stimulant abuse, uncomplicated; R00.0 Tachycardia, unspecified; R07.89 Other chest pain; F41.9 Anxiety disorder, unspecified; Z88.0 Allergy status to penicillin
CPT/HCPCS: 36415; 71045; 80048; 80076; 80320; 84484; 85025; 93005; 96361; 96374; 99285; J2060; 70030-TC; A4663; G0480

== ENCOUNTER 2020-08-16 01:13 | Emergency (ER) | payer MEDICAID ==
[~2020-08-16] VITALS: Ht 180.3 cm; Wt 63.5 kg
[2020-08-16] MEDS ORDERED: NEOMY/BACITRA/POLYMYXIN B OINT UD PACKET TP ONE ×2 (03:15→03:29)
[2020-08-16] MEDS ORDERED: SULFAMETH/TRIMETH 800/160 MG TABLET PO ONE (03:15)
[2020-08-16] MEDS ORDERED: SULFAMETH/TRIMETH 800/160 MG TABLET ONE (03:29)
[2020-08-16 03:48] LABS: BILIRUBIN,DIRECT 0.3 mg/dL (0.0-0.2); CREATININE 0.9 mg/dL (0.6-1.3); POTASSIUM 3.7 mmol/L (3.5-5.1); TOTAL PROTEIN, SERUM 7.1 g/dL (6.4-8.2)
[2020-08-16 03:50] LABS: HEMATOCRIT 44.7 % (36.7-47.1); MEAN CORPUSCULAR HEMOGLOBIN 33.6 uug (23.8-33.4); PLATELET COUNT (AUTO) 344 K/uL (152-348)
--- NOTE | 2020-08-16 04:10 | NUR ---
PATIENT IN ROOM PLAYING ON CELLPHONE WITH NO DISTRESS NOTED.
[2020-08-16] MEDS ORDERED: SULF1TAB48 PO (06:17)
[2020-08-16 06:34] VITALS: BP 128/92
== END 2020-08-16 06:35 | disposition home or self-care (01) ==
LOC: ER 01:15
DX: R07.9 Chest pain, unspecified (principal); S61.211A Laceration without foreign body of left index finger without damage to nail, initial encounter; W27.8XXA Contact with other nonpowered hand tool, initial encounter; Y92.89 Other specified places as the place of occurrence of the external cause; Z88.0 Allergy status to penicillin; F15.10 Other stimulant abuse, uncomplicated; R94.31 Abnormal electrocardiogram [ECG] [EKG]; F41.0 Panic disorder [episodic paroxysmal anxiety]
CPT/HCPCS: 36415; 70030-TC; 71045; 85025; 93005; A4663

== ENCOUNTER 2021-04-12 15:10 | Emergency (ER) | payer MEDICAID ==
[~2021-04-12] VITALS: Ht 180.3 cm; Wt 77.1 kg
[~2021-04-12 15:10] MED LIST changes: -ALPR1TAB7 PO; -SERTRALINE HCL 100 MG TABLET; +SULF1TAB48 PO
--- NOTE | 2021-04-12 15:49 | NUR ---
PT IS IN ROOM #1A. DR VALLES EVALUATED THE PT.
[2021-04-12] MEDS: LORAZEPAM 0.5 MG TABLET PO ONE (16:23)
[2021-04-12 16:44] LABS: HEMATOCRIT 42.4 % (36.7-47.1); MEAN CORPUSCULAR HEMOGLOBIN 31.6 uug (23.8-33.4); MEAN CORPUSCULAR VOLUME 92.7 fL (73.0-96.2); PLATELET COUNT (AUTO) 296 K/uL (152-348)
[2021-04-12] MEDS ORDERED: LORAZEPAM 0.5 MG TABLET ONE (16:44)
[2021-04-12 16:45] LABS: CREATININE 0.7 mg/dL (0.6-1.3); POTASSIUM 3.8 mmol/L (3.5-5.1)
[2021-04-12 16:57] LABS: BILIRUBIN,DIRECT 0.1 mg/dL (0.0-0.2); BILIRUBIN,TOTAL 0.4 mg/dL (0.2-1.0); TOTAL PROTEIN, SERUM 7.2 g/dL (6.4-8.2)
--- NOTE | 2021-04-12 19:45 | NUR ---
renal technician at bedside to draw repeat trop. specimen collected without difficulty.
--- NOTE | 2021-04-12 19:55 | NUR ---
repeat EKG performed per [employer]. Resulted negative, EDMD signed off.
--- NOTE | 2021-04-12 20:30 | NUR ---
EDMD at bedside discussing dispo with pt.
--- NOTE | 2021-04-12 20:38 | NUR ---
Pt just spoke with mother on the phone. Addendum: 04/12/21 at 2057 by BRENDEN charted on wrong pt
--- NOTE | 2021-04-12 20:50 | NUR ---
At bedside, informed pt that EDMD is printing up DC paperwork and that he will be dced soon, EDMD reviewing chart currently. VS checked, VSS, PE WNL, pt is otherwise completely healthy besides his anxiety d/o. Pt states that he feels completely fine, denies any pain, sob, dizziness, n/v, or discomfort. No s/sx of distress present.
[2021-04-12] MEDS ORDERED: LORA-259 PO (21:01)
[2021-04-12] MEDS ORDERED: SERT50TA PO (21:01)
--- NOTE | 2021-04-12 21:20 | NUR ---
Pt given DC instuctions and med infor and pt confirmed understanding of aftercare. Pt told to not take meds with ETOH and to not drive or operate heavy machinery, pt told to watch for addiction and to take only as directed. pt understood. VSS 125/74, 97% RA, afeb, 16rpm, 0/10 pain. Pt denies any pain, sob n/v or discomfort. no s/sx of distress present.
[2021-04-12 21:28] VITALS: BP 125/74
== END 2021-04-12 21:30 | disposition home or self-care (01) ==
LOC: ER 15:12
DX: R07.89 Other chest pain (principal); F41.9 Anxiety disorder, unspecified; I25.10 Atherosclerotic heart disease of native coronary artery without angina pectoris; F17.210 Nicotine dependence, cigarettes, uncomplicated; Z88.0 Allergy status to penicillin; Z79.899 Other long term (current) drug therapy; Z20.822 Contact with and (suspected) exposure to COVID-19
CPT/HCPCS: 36415; 70030-TC; 71045; 85025; 93005; A4663

== ENCOUNTER 2021-05-01 16:03 | Emergency (ER) | payer MEDICAID ==
[~2021-05-01] VITALS: Ht 180.3 cm; Wt 77.1 kg
[~2021-05-01 16:03] MED LIST changes: +LORA-259 PO; +SERT50TA PO
--- NOTE | 2021-05-01 16:25 | NUR ---
at bedside to examine pt.
[2021-05-01] MEDS ORDERED: SERT50TA PO (16:55)
[2021-05-01 17:26] VITALS: BP 138/77
== END 2021-05-01 17:00 | disposition home or self-care (01) ==
LOC: ER 16:05
DX: F32.A Depression, unspecified (principal); F41.9 Anxiety disorder, unspecified; Z76.0 Encounter for issue of repeat prescription
CPT/HCPCS: A4663

== ENCOUNTER 2023-06-21 09:34 | Emergency (ER) | payer MEDICAID ==
[~2023-06-21] VITALS: Ht 180.3 cm; Wt 81.6 kg
[2023-06-21 09:38] VITALS: O2SAT 98
[2023-06-21] MEDS ORDERED: IBUP-1953 PO (12:33)
== END 2023-06-21 13:10 | disposition home or self-care (01) ==
LOC: ER 09:34
DX: M54.9 Dorsalgia, unspecified (principal); F17.200 Nicotine dependence, unspecified, uncomplicated; Z79.899 Other long term (current) drug therapy; Z88.0 Allergy status to penicillin
CPT/HCPCS: 71046; A4606; A4663

== ENCOUNTER 2025-01-03 15:37 | Emergency (ER) | payer MEDICAID ==
[~2025-01-03] VITALS: Ht 180.3 cm; Wt 85.3 kg
[~2025-01-03 15:37] MED LIST changes: +IBUP-1953 PO
[2025-01-03 15:41] VITALS: BP 149/96
[2025-01-03 16:05] LABS: *BILIRUBIN,URIN NEGATIVE (NEGATIVE); *CLARITY,URINE CLEAR (CLEAR); *COLOR,URINE YELLOW (YELLOW); *KETONES,URINE NEGATIVE (NEGATIVE); *PROTEIN,URINE NEGATIVE (NEGATIVE); *UROBILINOGEN,URINE 0.2 E.U./dl (NORMAL); LEUKOCYTE ESTERASE ,URINE NEGATIVE (NEGATIVE); NITRITE, URINE NEGATIVE (NEGATIVE); UGLUCOSE NEGATIVE (NEGATIVE)
[2025-01-03 16:06] LABS: PLATELET COUNT (AUTO) 264 K/uL (152-348); RED BLOOD CELL COUNT(AUTO) 4.79 MIL/uL (4.06-5.63); RED CELL DISTRIBUTION WIDTH 13.0 % (12.1-16.2); WHITE BLOOD COUNT (AUTO) 8.2 K/uL (3.6-10.2)
[2025-01-03 16:08] LABS: *BLOOD, URINE TRACE (NEGATIVE); ERYTHROCYTE SEDIMENTATION RATE 2 MM/HR (0-15)
[2025-01-03 16:11] LABS: CREATININE 0.9 mg/dL (0.6-1.3); SODIUM SERUM 140.0 mmol/L (136-145); UREA NITROGEN, BLOOD 15.0 mg/dL (7-18)
[2025-01-03 16:17] LABS: ASPARTATE AMINOTRANSFERASE 22.0 U/L (15-37); TOTAL PROTEIN, SERUM 7.7 g/dL (6.4-8.2)
[2025-01-03 16:18] LABS: *AMPHETAMINE, URINE NEGATIVE (NEGATIVE); *BARBITURATE, URINE NEGATIVE (NEGATIVE); *BENZODIAZEPINE, URINE NEGATIVE (NEGATIVE); *CANNABINOID, URINE NEGATIVE (NEGATIVE); *COCCAINE, URINE NEGATIVE (NEGATIVE); *OPIATE, URINE NEGATIVE (NEGATIVE); *PHENCYCLIDINE SCREEN,URINE NEGATIVE (NEGATIVE); FENTANYL, URINE NEGATIVE (NEGATIVE); SQUAMOUS EPITHELIAL CELL,UR NONE SEEN /HPF (NONE SEEN)
[2025-01-03] MEDS ORDERED: NAPR-1160 PO (16:36)
[2025-01-03 17:00] VITALS: BP 149/96; TEMP 98.1; O2SAT 97
== END 2025-01-03 17:00 | disposition home or self-care (01) ==
LOC: ER 15:49
DX: R07.89 Other chest pain (principal); F17.200 Nicotine dependence, unspecified, uncomplicated; F41.9 Anxiety disorder, unspecified; Z79.899 Other long term (current) drug therapy; Z88.0 Allergy status to penicillin
CPT/HCPCS: 36415; 71046; 85025; 85651; 86140; A4606; A4663